=== PATIENT | female | born 1930 | race Caucasian/White ===

== ENCOUNTER 2017-03-04 18:09 | Inpatient (IN) ==
[2017-03-04] MEDS ORDERED: CLINDAMYCIN INJ 900 MG in PREMIX 1 EACH IV STA (18:32)
[2017-03-04] MEDS ORDERED: methylPREDNISolone SOD SUC 125 MG/2 ML VIAL IV STA (18:32)
[2017-03-04] MEDS ORDERED: ALBUTEROL/IPRATROPIUM 3 ML NEB RESP TX STA (18:32)
--- NOTE | 2017-03-04 18:38 | Emergency Department Note ---
Arrival - Arrival Chief Complaint: Non-Specific Stated Complaint: possible DVT/possible early symptoms of pneumonia ED Nursing Triage Note: c/o cellutitisis in both legs. pain in rt leg onset 4 days ago. coughing onset 4 days ago Mode of Arrival: Ambulatory Limitations: Altered Mental Status Source: Family Time Seen by Provider: 03/04/17 18:32 - History of Present Illness HPI Narrative: This 87-year-old white female with advanced dementia presents with a four-day history of progressive redness, swelling, and stinging pain to both lower legs. Coincident with this was onset of paroxysms of coughing associated wheezing without chills, fever, sinus symptoms, chest pain, nausea, vomiting, or purulence. The patient has not had a prior history of COPD or asthma and takes no medication in this regard. She was seen by her primary care physician who began her on Bactrim for her legs but symptoms and findings have progressed despite compliance with medication. Currently she is oriented to person only. Her history comes from her daughter. Onset (ago): day(s) (Patient presents 4 days post onset of symptoms) Allergies/Adverse Reactions: Allergies Allergy/AdvReac Type Severity Reaction Status Date / Time Amoxicillin Allergy Unknown/Unable Verified 02/05/17 19:30 to obtain azithromycin Allergy Unknown/Unable Verified 02/05/17 19:30 to obtain cephalexin [From Keflex] Allergy Unknown/Unable Verified 02/05/17 19:30 to obtain ketorolac Allergy Unknown/Unable Verified 02/05/17 19:30 to obtain Home Medications: Home Medications Medication Instructions Recorded Confirmed Type Donepezil [Aricept] 10 mg PO BEDTIME 02/05/17 03/04/17 History Estrogens(Conj) Tab [Premarin Tab] 0.9 mg PO DAILY 02/05/17 03/04/17 History Furosemide Tab [Lasix Tab] 20 mg PO DAILY 02/05/17 03/04/17 History Lisinopril [Zestril] 10 mg PO DAILY 02/05/17 03/04/17 History Memantine [Namenda] 10 mg PO BEDTIME 02/05/17 03/04/17 History Verapamil Sr Tab [Calan Sr Tab] 180 mg PO DAILY 02/05/17 03/04/17 History Apixaban [Eliquis] 2.5 mg PO BID #60 tablet 02/18/17 03/04/17 Rx Gabapentin Cap/Tab [Neurontin 300 mg PO TID #90 capsule 02/18/17 03/04/17 Rx Cap/Tab] QUEtiapine [SEROquel] 50 mg PO BID@1600,2100 #120 tablet 02/18/17 03/04/17 Rx Zaleplon [Sonata] 5 mg PO BEDTIME PRN #30 capsule 02/18/17 03/04/17 Rx Sulfameth/Trimeth 800-160 Tab 1 tablet PO DAILY 03/04/17 03/04/17 History [Bactrim DS Tab] Review of System - Review of System 12 point system: reviewed and no additional remarkable complaints except as stated - Review of System Constitutional: Present: as per HPI Head/Ears/Nose/Throat: Present: see HPI Respiratory: Present: as per HPI Cardiovascular: Present: as per HPI Gastrointestinal: Present: as per HPI Skin: Present: as per HPI Medical,Surgical,& Family Hx - Medical History Cardio: History of: Cardiac Dysrhythmia (afib), Hypertension Psychological: No history of: Behavior Problems, Violent Behavior, Psychiatric Problems Neurology: History of: Cerebrovascular Accident, Dementia, TIA HEENT: History of: Dental Problems (wears parital upper and lower dentures) Endocrine: History of: Thyroid Disorder (hypothyrodism) Renal: History of: Renal Failure (Creatinine 2.9), Renal Problems (congenital absence of one kidney) Genitourinary: History of: Kidney Stones Gastrointestinal: History of: GERD Musculoskeletal: History of: Back/Neck Problems Hematology: History of: Anemia - Surgical History Abdominal Surgeries: Surgical HX of: Appendectomy, Cholecystectomy Reproductive Surgeries: Surgical HX of;: Hysterectomy - Family History Family History: Reports;: Family Cancer (sister (pt unable to state what kind of cancer)), Family Heart Disease (brother had VT) - Social History Smoking Status: Smoker, status unknown Frequency of Alcohol Use: None Type of Drug Use: None Exam Physical Examination: GENERAL: Well developed, well nourished elderly white female in no acute distress. HEENT: Normocephalic. No trauma. Moist mucous membranes. EOMI. PERRLA. ENT NML NECK: Supple. No adenopathy. CARDIAC: Regular. No murmurs. Heart rate 66 CHEST: Clear to auscultation. No respiratory distress. O2 sat 95% ABDOMEN: Soft. Nontender. Active bowel sounds. EXTREMITIES: No trauma. Normal ROM. No pedal edema. SKIN: No diaphoresis. No rash. Bilateral red, weeping, tender anterior stasis dermatitis of both lower extremities. Soft Homans sign bilaterally. NEURO: Alert. Oriented to person only. Motor, sensory, vibratory intact. No focal deficits. Vital Signs: Vital Signs Temperature 97.3 F L 03/04/17 18:30 Pulse Rate 63 03/04/17 18:53 Respiratory Rate 20 03/04/17 18:53 Blood Pressure 135/76 03/04/17 18:30 O2 Sat by Pulse Oximetry 100 03/04/17 18:53 Course - Reevaluation(s) Reevaluation #1: Discussed with family parts sales representative the need for hospitalization for further treatment. - Consultations Consultation #1: Discussed with the hospitalist service who will admit for further evaluation and treatment. Results - Labs CBC & BMP: 03/04/17 18:41 03/04/17 18:41 Labs: I have reviewed the laboratory noted the persistent renal abnormalities. - Impressions EKG: Sinus rhythm with occasional PAC. Normal NV interval and QRS duration. Left axis deviation. Poor R-wave progression anteriorly. Nonspecific ST changes. No acute injury pattern noted. - Diagnostic Findings Procedure: Chest x-ray: image reviewed by me, report reviewed by me (Bibasilar infiltrates and effusions consistent with decompensated congestive heart failure ), Ultrasound: image reviewed by me, report reviewed by me (Bilateral lower extremity ultrasounds negative for DVT) Disposition Clinical Impression: Bilateral stasis cellulitis, Congestive failure, Chronic renal failure, Advanced dementia Case discussed with: patient's family Disposition: Still a Patient Condition: Stable Time of Disposition: 20:19
[2017-03-04 18:46] LABS: Basophils % 0.3 % (0.0-0.8); Eosinophils # 0.5 10*3/uL (0.0-0.87); Eosinophils % 7.1 % (0.00-10.9); Hematocrit 34.3 VOL% (35.7-47.0); Hemoglobin 11.3 GM/DL (12.0-16.0); Immature Granulocytes % 0.4 %; Immature Granulocytes Absolute 0.03 #; Lymphocytes # 1.6 10*3/uL (1.4-4.0); Lymphocytes % 23.1 % (21.3-54.2); Mean Corpuscular HGB Conc 32.9 GM/DL (32-36); Mean Corpuscular Hemoglobin 30 PG (27-34); Mean Platelet Volume 10.7 FL (9.6-12.0); Monocytes # 0.8 10*3/uL (0.11-0.8); Monocytes % 12.4 % (1.7-12.7); Neutrophils # 3.9 10*3/uL (1.4-7.4); Neutrophils % 56.7 % (38.7-73.9); Platelet Count 203 T/CUMM (130-400); Red Blood Count 3.77 MC/CUMM (3.8-5.5); Red Cell Distribution Width 13.6 % (9.3-17.3); White Blood Count 6.8 T/CUMM (4-12)
[2017-03-04 19:03] LABS: PT Patient Result 10.9 SECS; Partial Thromboplastin Time 32.6 SECS (0-40)
--- NOTE | 2017-03-04 19:19 | Ultrasound Report ---
Bilateral lower extremity venous Doppler with perry scale, Spectral Doppler and color-flow analysis performed and interpreted. Indication: Shortness of breath. Leg redness. Scanning over both common femoral veins, superficial femoral veins, greater saphenous veins and popliteal veins demonstrates normal compressibility, color flow, and augmentation. Impression: No evidence of DVT seen in either lower extremity. PROCEDURE INTERPRETED AT [facility] DEPARTMENT OF RADIOLOGY Final Report Signed by: Dr. Carolina Rasheed
[2017-03-04 19:20] LABS: Alanine Aminotransferase 20 U/L (13-56); Alkaline Phosphatase 115 U/L (45-117); Aspartate Amino Transferase 21 U/L (0-37); Blood Urea Nitrogen 47 MG/DL (7-18); Calcium 8.4 MG/DL (8.5-10.1); Glucose 99 MG/DL (74-106); Osmolality,Calculated 284.8 MOS/KG (273-304); Sodium 137 MMOL/L (136-145); Total Protein 5.8 G/DL (6.4-8.3); Troponin I Only < 0.015 NG/ML (0.00-0.045)
--- NOTE | 2017-03-04 19:29 | EKG Report ---
Stationary ECG Study [facility] ER Test Date: 03/04/2017 7:27:13 PM Pat Name: VIRGIL ALSTON Department: Room: Gender: F Asset Protection Manager: NEENA : 1930 Requested by: Dev Ochoa Order Number: [id number] Reading MD: LIAM CARRASCO Intervals [place] Rate: 67 P: 89 NC: 197 QRS: -42 QRSD: 88 T: 59 QT: 386 QTc: 401 Interpretive Statements SINUS RHYTHM WITH OCCASIONAL SUPRAVENTRICULAR PREMATURE COMPLEXES MARKED LEFT AXIS DEVIATION LOW QRS VOLTAGE IN PRECORDIAL LEADS POSSIBLE ANTERIOR MYOCARDIAL INFARCTION, OF INDETERMINATE AGE Electronically Signed On 03-05-17 17:07:08 CDT by LIAM CARRASCO [email or web address]
[2017-03-04] MEDS ORDERED: CLINDAMYCIN INJ 50 ML IV ONE (19:31)
[2017-03-04] MEDS ORDERED: methylPREDNISolone SOD SUC 125 MG/2 ML VIAL ONE (19:31)
[2017-03-04 20:01] LABS: Apearance,Urine CLEAR (Clear); Bilirubin,Urine Negative (Negative); Blood, Urine Negative (Negative); Glucose,Urine (UA) Negative (Negative); Ketones,Urine Negative (Negative); Mucus,Urine Occasional /LPF (Occasional); Nitrite,Urine Negative (Negative); Protein,Urine Negative; RBC,Urine 1 /HPF (0-4); Urine Color Straw (Yellow); Urine Specific Gravity 1.006 (1.001-1.035); Urine Urobilinogen < 2.0 EU/DL (0.2-1.0); WBC,Urine 1 /HPF (0-6)
--- NOTE | 2017-03-04 20:02 | XRay Report ---
2 view chest. Indication: Shortness of breath. Comparison: February 05, 2017. The heart is enlarged. There is uncoiling of the thoracic aorta. There is calcification within the aortic knob. The pulmonary vasculature is normal. There are mild bilateral infiltrates, worse on the left. There are mild to moderate bilateral pleural effusions. Degenerative changes and scoliosis of the spinal column. Impression: Basilar infiltrates and pleural effusion, worse on the left. PROCEDURE INTERPRETED AT [facility] DEPARTMENT OF RADIOLOGY Final Report Signed by: Dr. Carolina Rasheed
[2017-03-04] MEDS ORDERED: ACETAMINOPHEN 325 MG TABLET PO PRN (20:39)
[2017-03-04] MEDS ORDERED: LACTULOSE 20 GM/30 ML UDCUP PO PRN (20:39)
[2017-03-04] MEDS ORDERED: ONDANSETRON 4 MG/2 ML VIAL IV PRN (20:39)
[2017-03-04] MEDS ORDERED: ZALEPLON 5 MG CAPSULE PO PRN (20:39)
--- NOTE | 2017-03-04 20:49 | Hospitalist History & Physical ---
Assessment and Plan (1) Cellulitis Status: Acute Assessment and plan: Clindamycin IV Current Visit: Yes (2) Alzheimer's dementia Status: Acute Assessment and plan: Namenda and Aricept Current Visit: Yes (3) Acute renal failure Status: Acute Assessment and plan: Hold NEELA inhibitor. No Bactrim. Renal ultrasound and monitor kidney function Current Visit: Yes (4) Congestive heart failure Status: Acute Assessment and plan: Lasix IV, echocardiogram, serial troponin Current Visit: Yes (5) Hypertension Status: Acute Assessment and plan: Monitor for now Current Visit: No (6) Atrial fibrillation Status: Acute Assessment and plan: Continue verapamil and Eliquis Current Visit: No (7) Major depressive disorder Status: Acute Current Visit: No History of Present Illness Chief complaint: swelling History of present illness: Ms. Vides is a 87 year old female with advanced dementia presents with a four- day history of progressive redness, swelling, and stinging pain to both lower legs. Coincident with this was onset of paroxysms of coughing associated wheezing without chills, fever, sinus symptoms, chest pain, nausea, vomiting, or purulence. The patient has not had a prior history of COPD or asthma and takes no medication in this regard. She was seen by her primary care physician who began her on Bactrim for her legs but symptoms and findings have progressed despite compliance with medication. Renal failure may be due to bactrim. Cxr consistent with a component of heart. Home Medications Medication Instructions Recorded Confirmed Type Donepezil [Aricept] 10 mg PO BEDTIME 02/05/17 03/04/17 History Estrogens(Conj) Tab [Premarin Tab] 0.9 mg PO DAILY 02/05/17 03/04/17 History Furosemide Tab [Lasix Tab] 20 mg PO DAILY 02/05/17 03/04/17 History Lisinopril [Zestril] 10 mg PO DAILY 02/05/17 03/04/17 History Memantine [Namenda] 10 mg PO BEDTIME 02/05/17 03/04/17 History Verapamil Sr Tab [Calan Sr Tab] 180 mg PO DAILY 02/05/17 03/04/17 History Apixaban [Eliquis] 2.5 mg PO BID #60 tablet 02/18/17 03/04/17 Rx Gabapentin Cap/Tab [Neurontin 300 mg PO TID #90 capsule 02/18/17 03/04/17 Rx Cap/Tab] QUEtiapine [SEROquel] 50 mg PO BID@1600,2100 #120 tablet 02/18/17 03/04/17 Rx Zaleplon [Sonata] 5 mg PO BEDTIME PRN #30 capsule 02/18/17 03/04/17 Rx Sulfameth/Trimeth 800-160 Tab 1 tablet PO DAILY 03/04/17 03/04/17 History [Bactrim DS Tab] Allergies Allergy/AdvReac Type Severity Reaction Status Date / Time Amoxicillin Allergy Unknown/Unable Verified 02/05/17 19:30 to obtain azithromycin Allergy Unknown/Unable Verified 02/05/17 19:30 to obtain cephalexin [From Keflex] Allergy Unknown/Unable Verified 02/05/17 19:30 to obtain ketorolac Allergy Unknown/Unable Verified 02/05/17 19:30 to obtain Medical,Surgical,& Family Hx - Medical History Cardio: History of: Cardiac Dysrhythmia (afib), Hypertension Psychological: No history of: Behavior Problems, Violent Behavior, Psychiatric Problems Neurology: History of: Cerebrovascular Accident, Dementia, TIA HEENT: History of: Dental Problems (wears parital upper and lower dentures) Endocrine: History of: Thyroid Disorder (hypothyrodism) Renal: History of: Renal Failure (Creatinine 2.9), Renal Problems (congenital absence of one kidney) Genitourinary: History of: Kidney Stones Gastrointestinal: History of: GERD Musculoskeletal: History of: Back/Neck Problems Hematology: History of: Anemia - Surgical History Abdominal Surgeries: Surgical HX of: Appendectomy, Cholecystectomy Reproductive Surgeries: Surgical HX of;: Hysterectomy - Family History Family History: Reports;: Family Cancer (sister (pt unable to state what kind of cancer)), Family Heart Disease (brother had DE) - Social History Smoking Status: Former smoker Frequency of Alcohol Use: None Type of Drug Use: None Marital Status: Single Lives With:: Alone Functional capacity: independent ambulation - Constitutional Constitutional: Present: fatigue. Absent: fever(s), headache(s) - EENT Eyes: Absent: blurry vision, diplopia Ears: Absent: decreased hearing, ear discharge Nose, mouth and throat: Present: sore throat. Absent: headache(s) - Cardiovascular Cardiovascular: Present: dyspnea, dyspnea on exertion, edema. Absent: chest pain at rest, chest pain with activity - Respiratory Respiratory: Present: cough, dyspnea, dyspnea on exertion, wheezing, change in phlegm color - Gastrointestinal Gastrointestinal: Absent: constipation, diarrhea, nausea, vomiting - Genitourinary Genitourinary: Absent: difficulty urinating, dysuria - Musculoskeletal Musculoskeletal: Absent: arthralgias, joint swelling - Neurological Neurological: Present: confusion. Absent: headache(s), syncope - Psychiatric Psychiatric: Present: depression. Absent: anxiety - Endocrine Endocrine: Present: fatigue. Absent: cold intolerance, heat intolerance - Hematologic/Lymphatic Hematologic/Lymphatic: Absent: easy bleeding, easy bruising Exam - Constitutional Vitals: Period Temp Pulse Resp BP Sys/Key Pulse Ox Last 24 Hr 97.3 F-97.3 F 58-73 18-20 135-148/62-76 95-100 General appearance: normal weight, no acute distress - Head Head exam: Present: normal inspection, normocephalic - Eye Eye exam: Present: EOMI. Absent: scleral icterus Pupils: Present: DELMA, normal accommodation - ENT ENT exam: Present: normal exam, normal external ear exam - Neck Neck exam: Absent: lymphadenopathy, thyromegaly - Respiratory Respiratory exam: Present: rales, wheezes - Cardiovascular Cardiovascular exam: Present: regular rate and rhythm. Absent: systolic murmur - GI/Abdominal GI/Abdominal exam: Present: normal bowel sounds, soft. Absent: tenderness - Extremities Exam Extremities exam: Present: normal capillary refill, edema - Neurological Exam Neurological exam: Present: alert, oriented X3 (times 1), reflexes normal. Absent: motor sensory deficit - Psychiatric Psychiatric exam: Present: normal affect, normal mood - Skin Skin exam: Present: warm, erythema Results - Labs CBC & BMP: 03/04/17 18:41 03/04/17 18:41 Lab Results: I have reviewed the past 24 hour labs - Diagnostic Findings Procedure: Chest x-ray: report reviewed by me (edema with pleural effusion ), Ultrasound: report reviewed by me (Negative for DVT)
[2017-03-04] MEDS ORDERED: ENOXAPARIN 30 MG/0.3 ML SYRINGE SUBCUT SCH (21:00)
[2017-03-04 21:13] LABS: Magnesium 2.2 MG/DL (1.8-2.4); Thyroid Stimulating Hormone 2.66 uIU/ml (0.358-3.74)
--- NOTE | 2017-03-04 21:45 | Ultrasound Report ---
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 The right kidney is 10.1 cm in length Left kidney is not seen in the left renal fossa No hydronephrosis seen in the right Cortical echogenicity on the right is normal There is arterial flow to the right kidney Impression: Absent left kidney with no right renal abnormality seen PROCEDURE INTERPRETED AT [facility] DEPARTMENT OF RADIOLOGY Final Report Signed by: Dr. Aster Rasheed
[2017-03-04] MEDS ORDERED: LEVOFLOXACIN INJ 500 MG in PREMIX 1 EACH IV ONE (22:00)
[2017-03-04] MEDS: MEMANTINE 10 MG TABLET PO SCH ×2 (22:58→23:27)
[2017-03-04] MEDS: GABAPENTIN 300 MG CAPSULE PO SCH ×2 (22:58→23:27)
[2017-03-04] MEDS: APIXABAN 2.5 MG TABLET PO SCH ×2 (22:58→23:26)
[2017-03-04] MEDS: QUEtiapine 25 MG TABLET PO SCH ×2 (22:58→23:27)
[2017-03-04] MEDS: DONEPEZIL 10 MG TABLET PO SCH ×2 (22:58→23:27)
[2017-03-04] MEDS: ALBUTEROL 0.63 MG/3 ML NEB RESP TX SCH (23:27)
[2017-03-05] MEDS: ALBUTEROL 0.63 MG/3 ML NEB RESP TX SCH ×6 (02:41→23:54)
[2017-03-05] MEDS: CLINDAMYCIN INJ 600 MG in PREMIX 1 EACH IV SCH ×3 (04:19→20:25)
[2017-03-05 06:58] LABS: Hematocrit 32.6 VOL% (35.7-47.0); Hemoglobin 10.6 GM/DL (12.0-16.0); Immature Granulocytes % 0.4 %; Immature Granulocytes Absolute 0.01 #; Lymphocytes # 0.4 10*3/uL (1.4-4.0); Lymphocytes % 15.1 % (21.3-54.2); Mean Corpuscular HGB Conc 32.5 GM/DL (32-36); Mean Corpuscular Hemoglobin 29 PG (27-34); Mean Corpuscular Volume 89.8 FL (87-102); Mean Platelet Volume 11.1 FL (9.6-12.0); Monocytes # 0.1 10*3/uL (0.11-0.8); Monocytes % 2.4 % (1.7-12.7); Neutrophils # 2.1 10*3/uL (1.4-7.4); Neutrophils % 82.1 % (38.7-73.9); Platelet Count 194 T/CUMM (130-400); Red Blood Count 3.63 MC/CUMM (3.8-5.5); Red Cell Distribution Width 13.3 % (9.3-17.3); White Blood Count 2.5 T/CUMM (4-12)
[2017-03-05 07:34] LABS: Risk Ratio 2.41; VLDL CHOLESTEROL 15.6 MG/DL
[2017-03-05] MEDS ORDERED: FUROSEMIDE 40 MG/4 ML VIAL IV SCH (08:00)
[2017-03-05] MEDS: VERAPAMIL SR 180 MG TABLET PO SCH (09:04)
[2017-03-05] MEDS: BISACODYL 5 MG TABLET PO SCH (09:04)
[2017-03-05] MEDS: DESITIN 4OZ/NYSTATIN 15 GRAM MIXTURE PASTE TOP SCH ×2 (09:04→20:25)
[2017-03-05] MEDS: GABAPENTIN 300 MG CAPSULE PO SCH ×3 (09:04→20:24)
[2017-03-05] MEDS: APIXABAN 2.5 MG TABLET PO SCH ×2 (09:04→20:24)
[2017-03-05] MEDS: PANTOPRAZOLE 40 MG TABLET PO SCH (09:04)
--- NOTE | 2017-03-05 15:01 | Hospitalist Progress Note ---
Assessment and Plan (1) Cellulitis Status: Acute Assessment and plan: Clindamycin and Levaquin IV Current Visit: Yes (2) Alzheimer's dementia Status: Acute Assessment and plan: Namenda and Aricept Current Visit: Yes (3) Acute renal failure Status: Acute Assessment and plan: Renal ultrasound shows normal function on the right side. Patient on Lasix due to mild heart failure Current Visit: Yes (4) Congestive heart failure Status: Acute Assessment and plan: Lasix IV, echocardiogram pending, serial troponin Current Visit: Yes (5) Hypertension Status: Acute Assessment and plan: Continue verapamil. Current Visit: No (6) Atrial fibrillation Status: Acute Assessment and plan: Continue verapamil and Eliquis Current Visit: No (7) Major depressive disorder Status: Acute Current Visit: No Hospitalist: Subjective Interval history: patient looks good today, cellulitis improved. PT evaluation pending. Will make referral to [facility]. Patient is debilitated Exam - Constitutional Vitals: Period Temp Pulse Resp BP Sys/Key Pulse Ox Last 24 Hr 96.2 F-97.6 F 56-73 16-20 114-148/62-76 93-100 Exam: Heart Rate-[RRR] Lungs-[CTAB] GI-[+bs soft, NT] Ext-[bilateral cellulitis and edema improving ] Neuro [Motor 5/5], [alert and oriented times 2] psych [normal mood and affect] General [no acute distress] Results - Labs CBC & BMP: 03/05/17 06:00 03/04/17 18:41 Lab Results: I have reviewed the past 24 hour labs - Diagnostic Findings Procedure: Ultrasound: report reviewed by me (Patient does not have a left kidney but right kidney appears normal. No hydro-)
[2017-03-05] MEDS: QUEtiapine 25 MG TABLET PO SCH ×2 (15:12→20:24)
[2017-03-05] MEDS ORDERED: LORazepam 2 MG/1 ML VIAL ONE (16:32)
[2017-03-05] MEDS ORDERED: LORazepam 2 MG/1 ML VIAL IV ONE (16:37)
[2017-03-05] MEDS ORDERED: ZIPRASIDONE 20 MG/1 ML VIAL IM PRN (16:38)
--- NOTE | 2017-03-05 16:54 | ECHO Report ---
Gissel Vides Exam Date: 03/05/2017 09:32 Referring Physician: Technologist: Annalisa De Age: 87 Ht (in): 66 Wt (lb): 175 Gender: F Exam Location: [facility] Echo Indications: A FIB, HTN, CHF, ARF, alzheimers, depression BP: 114 / 73 HR: 56 Rhythm: Sinus Technical Quality: Fair IMPRESSIONS Mild concentric left ventricular hypertrophy. Left ventricular ejection fraction is estimated at 55-60 %. Mildly increased right ventricular size. The right atrium is mildly enlarged. Mildly increased left atrial diameter. Mild mitral valve sclerosis. Mild-moderate mitral valve regurgitation. Mild aortic valve sclerosis. Morphologically normal tricuspid valve. [id number] tricuspid valve regurgitation. Tricuspid regurgitation velocities suggest a PAP of 31.4 mmHg + RAP. Morphologically normal pulmonic valve. Trace pulmonary valve regurgitation. No pericardial effusion. + pleural effusion. Normal size aortic root and proximal ascending aorta. MEASUREMENTS (Male / Female) Normal Values 2D ECHO LV Diastolic Diameter PLAX 3.6 cm 4.2 - 5.9 / 3.9 - 5.3 cm LV Systolic Diameter PLAX 2.2 cm LV Fractional Shortening PLAX 37.1 % IVS Diastolic Thickness 1.2 cm 0.6 - 1.0 / 0.6 - 0.9 cm LVPW Diastolic Thickness 1.0 cm 0.6 - 1.0 / 0.6 - 0.9 cm RV Internal Dim ED PLAX 2.7 cm Aortic Root Diameter 2.8 cm LA Systolic Diameter LX 3.9 cm 3.0 - 4.0 / 2.7 - 3.8 cm FINDINGS Left Ventricle Mild concentric left ventricular hypertrophy. Left ventricular ejection fraction is estimated at 55-60 %. Right Ventricle Mildly increased right ventricular size. Right Atrium The right atrium is mildly enlarged. Left Atrium Mildly increased left atrial diameter. Mitral Valve Mild mitral valve sclerosis. Mild-moderate mitral valve regurgitation. Aortic Valve Mild aortic valve sclerosis. Tricuspid Valve Morphologically normal tricuspid valve. [id number] tricuspid valve regurgitation. Tricuspid regurgitation velocities suggest a PAP of 31.4 mmHg + RAP. Pulmonic Valve Morphologically normal pulmonic valve. Trace pulmonary valve regurgitation. Pericardium No pericardial effusion. + pleural effusion. Aorta Normal size aortic root and proximal ascending aorta. Rohan Gr MD (Electronically Signed) Final Date: 05 March 2017 16:53
[2017-03-05] MEDS: ESCITALOPRAM 10 MG TABLET PO SCH (18:34)
[2017-03-05] MEDS: DONEPEZIL 10 MG TABLET PO SCH (20:23)
[2017-03-05] MEDS: MEMANTINE 10 MG TABLET PO SCH (20:24)
[2017-03-06] MEDS: CLINDAMYCIN INJ 600 MG in PREMIX 1 EACH IV SCH ×3 (03:47→20:34)
[2017-03-06] MEDS: ALBUTEROL 0.63 MG/3 ML NEB RESP TX SCH ×3 (03:53→11:08)
[2017-03-06 05:32] LABS: Eosinophils % 0.1 % (0.00-10.9); Hematocrit 30.7 VOL% (35.7-47.0); Hemoglobin 10.1 GM/DL (12.0-16.0); Immature Granulocytes % 0.6 %; Immature Granulocytes Absolute 0.05 #; Lymphocytes # 0.6 10*3/uL (1.4-4.0); Lymphocytes % 6.9 % (21.3-54.2); Mean Corpuscular HGB Conc 32.9 GM/DL (32-36); Mean Corpuscular Hemoglobin 29 PG (27-34); Mean Corpuscular Volume 89.2 FL (87-102); Mean Platelet Volume 10.8 FL (9.6-12.0); Monocytes # 0.5 10*3/uL (0.11-0.8); Monocytes % 6.2 % (1.7-12.7); Neutrophils # 7.2 10*3/uL (1.4-7.4); Neutrophils % 86.2 % (38.7-73.9); Platelet Count 182 T/CUMM (130-400); Red Blood Count 3.44 MC/CUMM (3.8-5.5); Red Cell Distribution Width 13.2 % (9.3-17.3); White Blood Count 8.4 T/CUMM (4-12)
[2017-03-06 05:59] LABS: Magnesium 2.3 MG/DL (1.8-2.4); Osmolality,Calculated 290.8 MOS/KG (273-304); Potassium 4.5 MMOL/L (3.5-5.1)
[2017-03-06] MEDS ORDERED: FUROSEMIDE 40 MG/4 ML VIAL IV SCH (09:00)
[2017-03-06] MEDS: PANTOPRAZOLE 40 MG TABLET PO SCH (09:01)
[2017-03-06] MEDS: BISACODYL 5 MG TABLET PO SCH ×2 (09:01→10:56)
[2017-03-06] MEDS: GABAPENTIN 300 MG CAPSULE PO SCH ×3 (09:01→20:35)
[2017-03-06] MEDS: VERAPAMIL SR 180 MG TABLET PO SCH (09:01)
[2017-03-06] MEDS: ESCITALOPRAM 10 MG TABLET PO SCH (09:01)
[2017-03-06] MEDS: APIXABAN 2.5 MG TABLET PO SCH ×2 (09:02→20:35)
[2017-03-06] MEDS: DESITIN 4OZ/NYSTATIN 15 GRAM MIXTURE PASTE TOP SCH ×3 (09:06→20:38)
--- NOTE | 2017-03-06 10:58 | Discharge Summary ---
Hospital Course - Hospital Course Hospital Course: Ms. Vides is a 87 year old female with advanced dementia presents with a four- day history of progressive redness, swelling, and stinging pain to both lower legs. Patient had evidence of bilateral cellulitis which has improved with IV clindamycin and levaquin. Patient also had a component of congestive heart failure. Serial troponins were negative. Echocardiogram showed an EF of 55% with mild to moderate tricuspid and mitral regurg and a PAP of 31. 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 Her BNP was only mildly elevated but she had pleural effusions on her chest x-ray. She received gentle diuresis which bumped her BUN up slightly. Her kidney function will have to be continue to monitor carefully. Patient has severe behavior problems with advanced dementia and depression. She will be going to [facility] today for modification of her behavior. She needs to go to a facility that can extend more care to her. In speaking with her daughter yesterday she is going to look at the [facility] today and most likely will be planning to move her mother there after her behavior is modified at [facility]. - Time spent with patient Time with patient DS: Less than 30 minutes (25 min) Diagnosis - Discharge Diagnosis (1) Cellulitis Status: Acute (2) Alzheimer's dementia Status: Acute (3) Acute renal failure Status: Acute (4) Congestive heart failure Status: Acute (5) Hypertension Status: Acute (6) Atrial fibrillation Status: Acute (7) Major depressive disorder Status: Acute Discharge Plan - Discharge Data Disposition: Disch/Xfer to Psych Hos Condition at Discharge: Stable Discharge Diet: heart healthy Activity: resume usual activities as tolerated Hygiene: no restrictions Weight Bearing at Discharge: full weight bearing - Discharge Medications New Bisacodyl Tab [Dulcolax Tab] 10 mg PO DAILY tablet Escitalopram [Lexapro] 10 mg PO DAILY tablet Pantoprazole Tab [Protonix Tab] 40 mg PO DAILY tablet Clindamycin Cap [Cleocin Cap] 300 mg PO Q8HR #30 capsule Continue Estrogens(Conj) Tab [Premarin Tab] 0.9 mg PO DAILY Gabapentin Cap/Tab [Neurontin Cap/Tab] 300 mg PO TID #90 capsule QUEtiapine [SEROquel] 50 mg PO BID@1600,2100 #120 tablet Zaleplon [Sonata] 5 mg PO BEDTIME PRN #30 capsule PRN Reason: Sleep Verapamil Sr Tab [Calan Sr Tab] 180 mg PO DAILY Donepezil [Aricept] 10 mg PO BEDTIME Memantine [Namenda] 10 mg PO BEDTIME Apixaban [Eliquis] 2.5 mg PO BID #60 tablet Changed Furosemide Tab [Lasix Tab] 40 mg PO DAILY #0 Discontinued Sulfameth/Trimeth 800-160 Tab [Bactrim DS Tab] 1 tablet PO DAILY Lisinopril [Zestril] 10 mg PO DAILY - Follow Up or Referral - Forms/Instructions Exam - Constitutional Vitals: Period Temp Pulse Resp BP Sys/Key Pulse Ox Last 24 Hr 97.3 F-98.3 F 56-88 16-21 103-148/52-70 97-100 General appearance: normal weight, no acute distress - Respiratory Respiratory exam: Present: clear to auscultation bilaterally. Absent: rhonchi, wheezes - Cardiovascular Cardiovascular exam: Present: regular rate and rhythm. Absent: systolic murmur - GI/Abdominal GI/Abdominal exam: Present: normal bowel sounds, soft. Absent: tenderness - Extremities Exam Extremities exam: Present: normal inspection, normal capillary refill - Neurological Exam Neurological exam: Present: alert Discharge Results Procedures and tests throughout hospitalization: Pending Orders 03/04/17 18:43 Blood Culture Stat 03/07/17 04:00 BMP w/ Mg [Basic Metabolic Panel w/Mg] IN AM 03/08/17 04:00 BMP w/ Mg [Basic Metabolic Panel w/Mg] IN AM Labs on day of discharge: Labs from last 24 hours 03/06/17 03/06/17 03/05/17 05:19 05:19 15:21 WBC 8.4 D RBC 3.44 L Hgb 10.1 L Hct 30.7 L MCV 89.2 MCH 29 MCHC 32.9 RDW 13.2 Plt Count 182 MPV 10.8 Neut % (Auto) 86.2 H Lymph % (Auto) 6.9 L Fleming % (Auto) 6.2 Eos % (Auto) 0.1 Baso % (Auto) 0.0 Neut # (Auto) 7.2 Lymph # (Auto) 0.6 L Fleming # (Auto) 0.5 Eos # (Auto) 0.0 Baso # (Auto) 0.0 Immature Gran % 0.6 Nucleated RBC % 0.0 Immature Gran # 0.05 Nucleated RBCs # 0.00 Sodium 137 Potassium 4.5 Chloride 102 Carbon Dioxide 22 Anion Gap 17.5 H BUN 59 H Creatinine 3.50 H GFR Calculation 12 BUN/Creatinine Ratio 16.00 Glucose 112 H Calculated Osmolality 290.8 Calcium 8.0 L Magnesium 2.3 Troponin I < 0.015 Preliminary micro results at discharge 03/04/17 18:43 Blood Culture - Preliminary Blood No growth at 1 day 03/04/17 19:24 Blood Culture - Preliminary Blood No growth at 1 day DS: Provider Date of admission: 03/04/17 20:37 Primary care physician: . No PCP Attending physician on admission: Kushal Morris MD Consults: 03/04/17 20:42 Consult to Case Mgmt/Social Srvs [CONS] Routine Reason for Case Mgmt/Social Srvs: Rehab Consult to Occupational Therapy [CONS] Routine Reason for Occupational Therapy: Weakness Consult to Physical Therapy [CONS] Routine Reason for Physical Therapy: Weakness 03/05/17 16:10 Consult to Case Mgmt/Social Srvs [CONS] Routine Reason for Case Mgmt/Social Srvs: Psychiatric Management Discharging clinician: Thalia Keen MD
[2017-03-06] MEDS: QUEtiapine 25 MG TABLET PO SCH ×2 (15:33→20:35)
--- NOTE | 2017-03-06 16:24 | Physician Query Form ---
CLICK EDIT DOCUMENT TO SELECT QUERY ANSWER --> OK --> SIGN Peggy Castro RN Clinical Transfusion Aide W) [phone] (f) [phone] [email or web address] PROVIDERS: Make your selection(s) from the choices in EACH section by typing an "x" and enter comments in the comment section. Please use your independent medical judgment in providing your response. This request does not imply that any particular answer is desired or expected. CLINICAL INDICATORS: (Providers should not edit this section) Based on documentation of "acute CHF", HJP=269, Echo showed EF of 55-60%. Pt. treated with IV Lasix. Please provide further specificity regarding CHF. TYPE: ( ) Systolic (HFrEF - heart failure with reduced systolic function/EF) (x ) Diastolic (HFpEF - heart failure with preserved systolic function/EF) ( ) Combined Systolic/Diastolic ( ) Other, please specify: ( ) Clinically unable to determine ( ) The patient does NOT have CHF COMMENTS: PLEASE ALSO DOCUMENT RESPONSE IN PROGRESS NOTES AND/OR DISCHARGE SUMMARY Use of terms such as suspected, likely, or probable (associated with a specific diagnosis that is being evaluated, monitored, or treated as if it exists) are acceptable and can be restated in the discharge summary if not ruled out. MTDD
[2017-03-06] MEDS: MEMANTINE 10 MG TABLET PO SCH (20:35)
[2017-03-06] MEDS: DONEPEZIL 10 MG TABLET PO SCH (20:35)
[2017-03-06] MEDS ORDERED: LEVOFLOXACIN INJ 250 MG in PREMIX 1 EACH IV SCH (21:00)
[2017-03-07] MEDS: CLINDAMYCIN INJ 600 MG in PREMIX 1 EACH IV SCH ×2 (04:40→13:20)
[2017-03-07 06:38] LABS: Calcium 8.1 MG/DL (8.5-10.1); Magnesium 2.5 MG/DL (1.8-2.4); Osmolality,Calculated 294.5 MOS/KG (273-304)
[2017-03-07] MEDS: BISACODYL 5 MG TABLET PO SCH ×2 (08:57→08:58)
[2017-03-07] MEDS: GABAPENTIN 300 MG CAPSULE PO SCH (08:58)
[2017-03-07] MEDS: VERAPAMIL SR 180 MG TABLET PO SCH (08:58)
[2017-03-07] MEDS: DESITIN 4OZ/NYSTATIN 15 GRAM MIXTURE PASTE TOP SCH (08:58)
[2017-03-07] MEDS: PANTOPRAZOLE 40 MG TABLET PO SCH (08:58)
[2017-03-07] MEDS: APIXABAN 2.5 MG TABLET PO SCH (08:58)
[2017-03-07] MEDS: ESCITALOPRAM 10 MG TABLET PO SCH (08:58)
[2017-03-07 11:45] VITALS: BP 146/62
== END 2017-03-07 13:41 | disposition home health service (06) | DRG 602 ==
LOC: N.ED 18:09 → SUATTDRO 20:37 → N.EDINP 20:37 → N.5E 21:04
PROVIDERS: ADMIT Internal Medicine; ATTEND Internal Medicine

== ENCOUNTER 2017-09-14 09:59 | Inpatient (IN) ==
[2017-09-14] MEDS ORDERED: FUROSEMIDE 100 MG/10 ML VIAL IV STA (10:30)
[2017-09-14 10:43] LABS: Basophils % 0.3 % (0.0-0.8); Eosinophils # 0.2 10*3/uL (0.0-0.87); Eosinophils % 2.9 % (0.00-10.9); Hematocrit 35.7 VOL% (35.7-47.0); Hemoglobin 11.6 GM/DL (12.0-16.0); Immature Granulocytes % 0.3 %; Immature Granulocytes Absolute 0.02 #; Lymphocytes # 0.8 10*3/uL (1.4-4.0); Lymphocytes % 9.4 % (21.3-54.2); Mean Corpuscular HGB Conc 32.5 GM/DL (32-36); Mean Corpuscular Hemoglobin 29 PG (27-34); Mean Corpuscular Volume 88.6 FL (87-102); Mean Platelet Volume 11.5 FL (9.6-12.0); Monocytes # 0.6 10*3/uL (0.11-0.8); Monocytes % 7.5 % (1.7-12.7); Neutrophils # 6.4 10*3/uL (1.4-7.4); Neutrophils % 79.6 % (38.7-73.9); Platelet Count 160 T/CUMM (130-400); Red Blood Count 4.03 MC/CUMM (3.8-5.5); Red Cell Distribution Width 14.6 % (9.3-17.3)
[2017-09-14] MEDS ORDERED: FUROSEMIDE 20 MG/2 ML VIAL ONE (10:43)
[2017-09-14] MEDS ORDERED: FUROSEMIDE 40 MG/4 ML VIAL ONE (10:43)
[2017-09-14 10:53] LABS: PT Patient Result 10.6 SECS; Partial Thromboplastin Time 29.7 SECS (0-40)
[2017-09-14 11:08] LABS: Alanine Aminotransferase 10 U/L (13-56); Albumin 3.2 G/DL (3.4-5.0); Alkaline Phosphatase 124 U/L (45-117); Aspartate Amino Transferase 12 U/L (0-37); Blood Urea Nitrogen 32 MG/DL (7-18); Calcium 8.3 MG/DL (8.5-10.1); Glucose 115 MG/DL (74-106); Osmolality,Calculated 290.1 MOS/KG (273-304); Potassium 3.9 MMOL/L (3.5-5.1); Sodium 142 MMOL/L (136-145); Total Protein 6.4 G/DL (6.4-8.3); Troponin I Only < 0.015 NG/ML (0.00-0.045)
[2017-09-14 11:09] LABS: Apearance,Urine CLEAR (Clear); Bacteria,Urine Occasional /HPF (Few); Bilirubin,Urine Negative (Negative); Blood, Urine Small mg/dL (Negative); Glucose,Urine (UA) Negative (Negative); Ketones,Urine Negative (Negative); Nitrite,Urine Negative (Negative); Protein,Urine 30 MG/DL; RBC,Urine 4 /HPF (0-4); Squamous Epithelial Cell,Urine Occasional /HPF (0-10); Urine Color Yellow (Yellow); Urine Urobilinogen < 2.0 EU/DL (0.2-1.0); WBC,Urine <1 /HPF (0-6)
[2017-09-14] MEDS ORDERED: ZALEPLON 5 MG CAPSULE PO PRN (11:32)
[2017-09-14] MEDS: QUEtiapine 25 MG TABLET PO SCH ×2 (16:36→20:51)
[2017-09-14] MEDS: FUROSEMIDE 20 MG/2 ML VIAL IV SCH (16:36)
[2017-09-14] MEDS: GABAPENTIN 300 MG CAPSULE PO SCH ×2 (16:36→20:51)
[2017-09-14] MEDS: DONEPEZIL 10 MG TABLET PO SCH (20:51)
[2017-09-14] MEDS: APIXABAN 2.5 MG TABLET PO SCH (20:51)
[2017-09-14] MEDS: MEMANTINE 10 MG TABLET PO SCH (20:51)
[2017-09-15 05:28] LABS: Calcium 8.2 MG/DL (8.5-10.1); Osmolality,Calculated 283.4 MOS/KG (273-304); Potassium 3.6 MMOL/L (3.5-5.1)
[2017-09-15] MEDS: GABAPENTIN 300 MG CAPSULE PO SCH ×3 (08:52→20:24)
[2017-09-15] MEDS: APIXABAN 2.5 MG TABLET PO SCH ×2 (08:52→20:24)
[2017-09-15] MEDS: FUROSEMIDE 20 MG/2 ML VIAL IV SCH ×2 (08:52→16:16)
[2017-09-15] MEDS: VERAPAMIL SR 180 MG TABLET PO SCH (08:52)
[2017-09-15] MEDS: BISACODYL 5 MG TABLET PO SCH (08:52)
[2017-09-15] MEDS: PANTOPRAZOLE 40 MG TABLET PO SCH (08:52)
[2017-09-15] MEDS: ESCITALOPRAM 10 MG TABLET PO SCH (08:52)
[2017-09-15] MEDS: ESTROGENS (CONJ) 0.9 MG TABLET PO SCH (08:58)
[2017-09-15] MEDS ORDERED: FUROSEMIDE 20 MG TABLET PO SCH (09:00)
[2017-09-15] MEDS: QUEtiapine 25 MG TABLET PO SCH ×2 (16:16→20:24)
[2017-09-15] MEDS: DONEPEZIL 10 MG TABLET PO SCH (20:24)
[2017-09-15] MEDS: MEMANTINE 10 MG TABLET PO SCH (20:24)
[2017-09-16 06:29] LABS: Calcium 7.8 MG/DL (8.5-10.1); Osmolality,Calculated 285.3 MOS/KG (273-304); Potassium 3.7 MMOL/L (3.5-5.1)
[2017-09-16] MEDS: VERAPAMIL SR 180 MG TABLET PO SCH (08:50)
[2017-09-16] MEDS: GABAPENTIN 300 MG CAPSULE PO SCH (08:50)
[2017-09-16] MEDS: FUROSEMIDE 20 MG/2 ML VIAL IV SCH (08:50)
[2017-09-16] MEDS: PANTOPRAZOLE 40 MG TABLET PO SCH (08:50)
[2017-09-16] MEDS: APIXABAN 2.5 MG TABLET PO SCH (08:50)
[2017-09-16] MEDS: ESCITALOPRAM 10 MG TABLET PO SCH (08:50)
[2017-09-16] MEDS: BISACODYL 5 MG TABLET PO SCH (08:54)
[2017-09-16] MEDS: ESTROGENS (CONJ) 0.9 MG TABLET PO SCH (08:54)
[2017-09-16 11:50] VITALS: BP 134/59
== END 2017-09-16 16:55 | disposition home or self-care (01) | DRG 291 ==
LOC: N.ED 09:59 → N.EDINP 11:30 → SUATTDRO 11:30 → N.TELEN 12:53
PROVIDERS: ADMIT Internal Medicine Geriatric Medicine; ATTEND Internal Medicine